=== PATIENT | male | born 1980 | race Caucasian/White ===

== ENCOUNTER 2016-09-02 18:38 | Emergency (ER) | payer OTHER ==
[~2016-09-02 18:38] MED LIST: KEFLEX500 M4 PO; NORCO 5/325 TAB1 TAB PO
[2016-09-02] MEDS ORDERED: NO HOME MEDICATION XX (19:03)
[2016-09-02] MEDS ORDERED: WELLBUTRIN XL150 M1 (19:07)
[2016-09-02] MEDS ORDERED: TRAZODONE HCL100 M1 (19:07)
[2016-09-02] MEDS ORDERED: KEFLEX500 M4 PO (20:56)
[2016-09-02] MEDS ORDERED: NORCO 5-325 TA1 EACH PO (20:56)
== END 2016-09-02 21:29 ==
LOC: EDMED 18:38
DX: S68.126A Partial traumatic metacarpophalangeal amputation of right little finger, initial encounter (principal); W28.XXXA Contact with powered lawn mower, initial encounter; Y92.019 Unspecified place in single-family (private) house as the place of occurrence of the external cause